=== PATIENT | female | born 1995 | race African-American/Black ===

== ENCOUNTER → 2017-03-09 | Outpatient (CLI) | payer OTHER ==
[~2017-03-09] MED LIST: GADOBUTROL 7.5 MMOL/7.5 ML VIAL IV ONE
--- NOTE | 2017-03-09 16:53 | RAD ---
INDICATION:LIVER LESION COMPARISON: None. Technique: Multiplanar, multisequence MRI images are obtained through the abdomen with and without intravenous contrast. FINDINGS: Visualized portion of abdominal aorta is not aneurysmal. No hydronephrosis. Multiple filling defects are seen within the gallbladder. Spleen unremarkable. No dilated loops of bowel in the upper abdomen to suggest obstruction. No peripancreatic edema. There are some enlarged vessels seen in the right upper quadrant the abdomen adjacent to the liver. Could be secondary to hypertrophy of the hepatic artery and portal vein. Within the right lobe the liver there is a large arterial enhancing mass identified which appears similar to the adjacent hepatic parenchyma on T2-weighted images. This mass measures up to approximately 143 x 114 mm. At the inferior aspect or immediately adjacent to this large mass there is a smaller region of hepatic parenchyma measuring up to about 13 mm which demonstrates washout on the more delayed postcontrast images which is more than the remainder of the large liver lesion. On the delayed images the majority of the large liver lesion has similar signal intensity to the adjacent hepatic parenchyma but the above-described region of washout is again seen. In addition at the anterior aspect of the liver mass there is a small additional area of washout measuring up to about 13 mm. IMPRESSION: Large right lobe of liver lesion is identified which has similar signal intensity to the hepatic parenchyma on T2-weighted imaging with very subtle T2 hyperintensity when compared to the adjacent normal parenchyma. This region demonstrates arterial enhancement and washout similar to the adjacent hepatic parenchyma on the later phase images. The most likely cause of this finding is a large focal nodular hyperplasia. If further evaluation is desired hepatocyte specific agents could be utilized to further confirm the suspicion of a large focal nodular hyperplasia with Eovist protocol MRI. There is a couple of regions within the right lobe of the liver that do not display the same imaging characteristics as the dominant large mass. One of these is either immediately adjacent to the mass inferiorly or within the periphery of the mass. This region demonstrates increased washout of contrast. There is a similar focus seen more superiorly and anteriorly within the large liver lesion. These 2 foci are more indeterminate in nature and could be secondary to an atypical portion of focal nodular hyperplasia but other causes of liver mass are within the differential therefore follow-up will be needed to ensure that these foci do not increase to exclude higher grade lesion such as hepatocellular carcinoma. Multiple gallstones. Prominent vessels in the right upper quadrant the abdomen at the liver. Could be secondary to hypertrophied hepatic artery and portal venous system.
== END | disposition home or self-care (01) ==
LOC: MRI 15:54
PROVIDERS: ATTEND Physician Assistant
DX: K76.9 Liver disease, unspecified (principal); K80.20 Calculus of gallbladder without cholecystitis without obstruction; R16.0 Hepatomegaly, not elsewhere classified
CPT/HCPCS: 74183; A9585

== ENCOUNTER → 2019-04-03 | Outpatient (CLI) | payer MEDICAID ==
[~2019-04-03] MED LIST changes: -GADOBUTROL 7.5 MMOL/7.5 ML VIAL IV ONE; +GADOTERATE 7.5 MMOL/15ML VIAL. IVP ONE
--- NOTE | 2019-04-03 16:53 | RAD ---
EXAM: MRI ABDOMEN WITH AND WITHOUT CONTRAST. HISTORY: Liver lesion. TECHNIQUE: MRI of the abdomen was performed before and after the intravenous administration of 15 mL Dotarem. COMPARISON: 03/09/2017. FINDINGS: Liver: A large lobulated lesion in the right hepatic lobe measures 14.9 x 10.2 cm transaxially and 13.7 cm craniocaudally, and is unchanged in size. It is slightly T2 hyperintense to hepatic parenchyma and restricts diffusion slightly. One focus of severe intralesional steatosis is now noted along its anterior periphery. This has increased since the prior study. It enhances arterially then normalizes with hepatic parenchyma. There is delayed enhancement of internal interstitium and a surrounding capsule. A small region of washout along its inferior periphery measures 13 mm on image 46 of series 12 and is unchanged. The common hepatic artery is large and tortuous. The mass is supplied by branches from both the right and left common hepatic artery. Biliary tree: The gallbladder is surgically absent. The common duct is not dilated. There are no suspicious pancreatic parenchymal lesions. The pancreatic duct is not dilated. Other findings: The kidneys, adrenal glands and spleen are unremarkable. IMPRESSION: 1. Stable 15 x 14 x 10 cm mass occupying the majority of the superior segment of the right hepatic lobe, most consistent with focal nodular hyperplasia. One region of washout along its inferior periphery is unchanged. This focus is indeterminate, but benignity is favored given stability. Small regions of intralesional steatosis have increased. Sometimes these lesions can be associated with oral contraceptive use and can regress on discontinuation. Ongoing follow-up is recommended. 2. The common, right and left hepatic arteries are enlarged and tortuous. Correlate to exclude a hemodynamically significant shunting through the mass. Electronically signed by: Eren Mares MD (04/03/2019 4:50 PM) [facility]
== END | disposition home or self-care (01) ==
LOC: MRI 12:25
PROVIDERS: ATTEND Internal Medicine Gastroenterology
DX: K76.0 Fatty (change of) liver, not elsewhere classified (principal)
CPT/HCPCS: 74183; A9575